=== PATIENT | female | born 1985 | race Caucasian/White ===

== ENCOUNTER 2017-02-23 07:02 | Emergency (ER) | payer OTHER ==
[2017-02-23 07:56] LABS: BASOPHIL 0.1 % (0-2); EOSINOPHIL 1.8 % (0-5); HCT 32.2 % (37.0-47.0); HGB 10.7 g/dl (12.5-16.0); LYMPHOCYTE 15.8 % (15-48); MCH 29.7 pg (25.0-31.0); MCHC 33.2 g/dL (32.0-36.0); MCV 89.4 fL (78.0-100.0); MONOCYTE 8.8 % (0-12); MPV 10.3 fL (6.0-9.5); NEUTROPHIL 73.5 % (41-80); PLT 265 K/uL (150-400); RDW 13.3 % (11.5-14.0); WBC 6.7 K/uL (4.0-10.5)
[2017-02-23 08:11] LABS: ALBUMIN 3.9 g/dL (3.5-5.0); BILIRUBIN - TOTAL 0.8 mg/dL (0.1-1.0); CREATININE 0.6 mg/dL (0.5-1.0); POTASSIUM 4.3 mmol/L (3.5-5.1); TOTAL PROTEIN 6.9 g/dL (6.4-8.3)
== END 2017-02-23 10:25 | disposition home or self-care (01) ==
LOC: FER 07:02
PROVIDERS: Emergency Medicine
DX: R09.1 Pleurisy (principal); Z87.42 Personal history of other diseases of the female genital tract; Z90.710 Acquired absence of both cervix and uterus
CPT/HCPCS: 36415; 71020; 71275; 80053; 84484; 85025; 85379; 93005; Q9967

== ENCOUNTER 2017-03-06 00:44 | Emergency (ER) | payer OTHER ==
[2017-03-06 01:04] LABS: BILIRUBIN NEGATIVE (NEGATIVE); BLOOD 2+ Ery/uL (NEGATIVE); CLARITY CLEAR (CLEAR); COLOR YELLOW (YELLOW); GLUCOSE (U) NORMAL (NORMAL); KETONE (U) NEGATIVE (NEGATIVE); LEUKOCYTES NEGATIVE Leu/uL (NEGATIVE); NITRITE NEGATIVE (NEGATIVE); PROTEIN TRACE (LOW) mg/dL (NEGATIVE); SPECIFIC GRAVITY >=1.030 (1.001-1.030); UROBILINOGEN 0.2 mg/dL (0.2-1.0); pH 5.5 (5.0-9.0)
[2017-03-06 01:08] LABS: BACTERIA TRACE; SQUAMOUS EPITHELIAL CELLS RARE
[2017-03-06 03:06] LABS: BASOPHIL 0.1 % (0-2); EOSINOPHIL 0.2 % (0-5); HCT 40.7 % (37.0-47.0); HGB 13.9 g/dl (12.5-16.0); LYMPHOCYTE 5.9 % (15-48); MCH 29.6 pg (25.0-31.0); MCHC 34.2 g/dL (32.0-36.0); MCV 86.8 fL (78.0-100.0); MONOCYTE 3.2 % (0-12); MPV 10.2 fL (6.0-9.5); NEUTROPHIL 90.6 % (41-80); PLT 397 K/uL (150-400); RBC 4.69 M/uL (4.20-5.40); RDW 13.4 % (11.5-14.0)
[2017-03-06 03:07] LABS: WBC 12.4 K/uL (4.0-10.5)
[2017-03-06 03:26] LABS: ALBUMIN 4.2 g/dL (3.5-5.0); BILIRUBIN - TOTAL 0.3 mg/dL (0.1-1.0); CREATININE 0.6 mg/dL (0.5-1.0); GLOBULIN (CALCULATION) 2.5 g/dL (2.2-4.2); POTASSIUM 4.5 mmol/L (3.5-5.1); TOTAL PROTEIN 6.7 g/dL (6.4-8.3)
== END 2017-03-06 09:48 | disposition home or self-care (01) ==
LOC: FER 00:44
PROVIDERS: Emergency Medicine
DX: N83.201 Unspecified ovarian cyst, right side (principal); R18.8 Other ascites; Z90.710 Acquired absence of both cervix and uterus
CPT/HCPCS: 36415; 74022; 80053; 81001; 83690; 85025; Q9967